=== PATIENT | female | born 1945 | race Caucasian/White ===

== ENCOUNTER 2025-02-01 15:15 | Oncology outpatient (recurring) (ONCR) | payer MEDICARE, SELFPAY ==
[2025-02-01 16:22] LABS: Hematocrit 23.3 % (36-47); Hemoglobin 7.30 g/dL (11.27-16.99); Mean Corpuscular HGB Conc 31.3 g/dL (30-55); Mean Corpuscular Hemoglobin 36.7 pg (27-33); Mean Corpuscular Volume 117.1 fl (85-98); Platelet Count 156 10^3/cmm (157-399); Red Blood Count 1.99 10^6/uL (3.85-5.65); White Blood Count 7.21 10^3/uL (3.29-11.43)
[2025-02-01 17:05] LABS: Atypical Lymphs 7.0 % (0-5); Band Neutrophils Absolute 0.1 10^3/cmm (0.0-1.2); Total Cells Counted 100 (0-100)
[2025-02-01 17:11] LABS: Alanine Aminotransferase 11 U/L (0-33); Albumin Level 4.7 g/dL (3.5-5.2); Alkaline Phosphatase 65 U/L (35-105); Anion Gap 14.2 (5-19); Aspartate Amino Transferase 26 U/L (0-32); Blood Urea Nitrogen 17 mg/dL (8-23); Calcium 10.1 mg/dL (8.5-10.5); Carbon Dioxide 28 mmol/L (22-29); Chloride 99 mmol/L (98-107); Ferritin 217 ng/mL (15-150); Globulin 2.3 g/dL (1.3-4.6); Glucose 90 mg/dL (65-115); Iron 192 ug/dL (37-145); Osmolality Calculated 285 mOsm/kg (285-295); Potassium 4.2 mmol/L (3.5-5.1); Sodium 137 mmol/L (136-145); Thyroid Stimulating Hormone 19.17 uIU/mL (0.27-4.20); Total Iron Binding Capacity 254 mcg/dl; Total Protein 7.0 g/dL (6.6-8.7); Unsaturated Iron Binding 62 ug/dL (112-347); Vitamin B12 867 pg/mL (232-1245)
[2025-02-01 17:13] LABS: Absolute Segmented Neutrophil 4.4 10/cmm (1.6-7.1); Anisocytosis 2+; Polychromasia 2+
[2025-02-01 17:14] LABS: Macrocytosis 1+; Microcytosis 1+
[2025-02-02 08:34] LABS: PROTEIN, TOTAL 7.0 g/dL (6.1-8.1)
[2025-02-04 08:54] LABS: ALPHA 1 GLOBULIN 0.3 g/dL (0.2-0.3); ALPHA 2 GLOBULIN 0.5 g/dL (0.5-0.9); BETA 1 GLOBULIN 0.4 g/dL (0.4-0.6); BETA 2 GLOBULIN 0.2 g/dL (0.2-0.5)
== END 2025-02-09 23:59 | disposition home or self-care (01) ==
PROVIDERS: PCP Family Medicine; Visit Provider Internal Medicine Medical Oncology
DX: D64.9 Anemia, unspecified (principal); R91.1 Solitary pulmonary nodule
CPT/HCPCS: 36415; 80053; 82607; 82728; 82746; 83540; 83550; 83615; 84155; 84165; 84443; 85007; 85025; 85045; 86880; 99205